=== PATIENT | male | born 1930 | race Caucasian/White ===

== ENCOUNTER 2017-01-31 05:43 | Emergency (ER) | payer MEDICARE, OTHER ==
[2017-01-31] MEDS ORDERED: X5 PO (05:59)
[2017-01-31] MEDS ORDERED: ASAB PO (06:00)
[2017-01-31] MEDS ORDERED: NITROQUICK0.4 MG SL (06:00)
[2017-01-31] MEDS ORDERED: PACERONE100 MG PO (06:00)
[2017-01-31] MEDS ORDERED: JANTOVEN3 MG (06:01)
[2017-01-31] MEDS ORDERED: ZETIA PO (06:01)
[2017-01-31] MEDS ORDERED: LISINOPRIL40 MG PO (06:01)
[2017-01-31] MEDS ORDERED: COREG25 PO (06:02)
[2017-01-31] MEDS ORDERED: RAN500 PO (06:02)
[2017-01-31] MEDS ORDERED: L40 PO (06:02)
[2017-01-31] MEDS ORDERED: LEVOTHYROXIN75 MCG PO (06:03)
[2017-01-31] MEDS ORDERED: NORCO1 TA1 PO (06:03)
[2017-01-31 06:10] LABS: BASOPHILS 0.2 %; BASOPHILS ABSOLUTE 0.01 10/3/uL (0.0-0.16); EOSINOPHILS 3.9 %; EOSINOPHILS ABSOLUTE 0.19 10/3/uL (0.0-0.53); ER CBC TAT 0 Hrs 12 Mins; HEMATOCRIT 35.5 % (40.0-51.0); HEMOGLOBIN 12.1 g/dL (13.6-17.8); IMMATURE GRANULOCYTES 0.4 %; IMMATURE GRANULOCYTES ABSOLUTE 0.02 10/3/uL (0.0-0.11); LYMPHOCYTES 21.3 %; LYMPHOCYTES ABSOLUTE 1.03 10/3/uL (0.67-4.30); MEAN CORPUS HGB CONC 34.1 g/dL (32.0-36.0); MEAN CORPUSCULAR HEMOGLOB 33.3 pg (26.0-34.0); MEAN CORPUSCULAR VOLUME 97.8 fL (80-100); MEAN PLATELET VOLUME 9.8 fL (9.2-13.0); MONOCYTES 11.2 %; MONOCYTES ABSOLUTE 0.54 10/3/uL (0.21-1.20); NEUTROPHILS ABSOLUTE 3.05 10/3/uL (2.02-8.40); PLATELET COUNT 126 10/3/uL (150-400); RED CELL COUNT 3.63 10/6/uL (4.7-6.1); WHITE BLOOD CELLS 4.8 10/3/uL (4.5-10.5)
[2017-01-31 06:14] LABS: MANUAL DIFF NO %
[2017-01-31 06:29] LABS: BUN (BLOOD UREA NITROGEN) 25 MG/DL (6-23); CALCIUM, SERUM 9.4 MG/DL (8.5-10.4); CHLORIDE, SERUM 106 MMOL/L (96-112); CO2 (CARBON DIOXIDE) 29 MMOL/L (24-34); CREATININE 1.53 MG/DL (0.70-1.30); GFR AFRICAN AMERICAN 47 ML/MIN (>=60); GFR NON AFRICAN AMERICAN 40 ML/MIN (>=60); GLUCOSE, SERUM 111 MG/DL (60-99); POTASSIUM, SERUM 3.7 MMOL/L (3.5-5.3); SODIUM, SERUM 141 MMOL/L (135-148)
== END 2017-01-31 06:43 | disposition home or self-care (01) ==
LOC: ER 05:43
PROVIDERS: Emergency Medicine
DX: H81.10 Benign paroxysmal vertigo, unspecified ear (principal); I11.0 Hypertensive heart disease with heart failure; I50.9 Heart failure, unspecified; Z88.6 Allergy status to analgesic agent; Z88.8 Allergy status to other drugs, medicaments and biological substances; Z79.82 Long term (current) use of aspirin; Z79.01 Long term (current) use of anticoagulants; Z79.899 Other long term (current) drug therapy
CPT/HCPCS: 70450; 80048; 85025; 93005; 99285; A9270-GY